=== PATIENT | female | born 1985 | race Hispanic/Latino ===

== ENCOUNTER → 2025-03-16 | Day surgery (SDC) | payer BC ==
[2025-03-10 10:10] LABS: BASOPHILS % 1.0 % (0.0-1.0); EOSINOPHILS % 1.3 % (0.0-6.0); LYMPHOCYTES % 33.7 % (18.0-39.1); MONOCYTES % 9.1 % (4.4-11.3); NEUTROPHILS % 54.8 % (38.7-80.0); RED CELL DISTRIBUTION WIDTH 12.4 % (11.7-14.4)
[~2025-03-16] MED LIST: DEXAMETHASONE SOD PHOS INJ 4 MG/ML SDV ONE; FENTANYL CITRATE/PF 100MCG/2 ML INJ ONE; LIDOCAINE HCL 2% LOCAL INJ 5 ML SDV VIAL INJ ONE; MIDAZOLAM HCL 2 MG/2 ML VIAL ONE; ONDANSETRON HCL INJ 2MG/ML 2ML 2 MG/ML VIAL ONE; PROPOFOL IV EMULSION 10 MG/ML 20 ML VIAL ONE; SEVOFLURANE INHAL SOLN 250 ML PEN BTL ONE
[2025-03-16] MEDS: LACTATED RINGER'S 1,000 ML ONE (06:02)
[2025-03-16] MEDS: CEFAZOLIN SODIUM 2 GM ONE (06:02)
[2025-03-16] MEDS: SCOPOLAMINE 1 MG PATCH ONE (06:38)
[2025-03-16] MEDS: FENTANYL CITRATE/PF 100MCG/2 ML INJ ONE (08:10)
[2025-03-16 08:50] VITALS: BP 143/95; PULSE 87; RESP 15; O2SAT 97
== END | disposition home or self-care (01) ==
LOC: OR 05:35
PROVIDERS: ATTEND Podiatrist Foot & Ankle Surgery
DX: M77.31 Calcaneal spur, right foot (principal); M72.2 Plantar fascial fibromatosis; I10 Essential (primary) hypertension; Z01.812 Encounter for preprocedural laboratory examination; Z01.818 Encounter for other preprocedural examination
CPT/HCPCS: 28119; 36415; 71046; 85025; J1100; J2003; J2250; J2405; J2704; J3010; J7121